=== PATIENT | female | born 1980 | race Caucasian/White ===

== ENCOUNTER → 2020-04-18 15:31 | Outpatient (CLI) | payer BC, SELFPAY ==
--- NOTE | ~2020-04-18 | XR_ITS ---
EXAMINATION: XR abdomen/kub 1V EXAM DATE: 04/18/2020 15:52 INDICATION: Left ureteral stone. TECHNIQUE: Frontal projection of the upper abdomen, frontal projection lower abdomen/pelvis for inter pretation. There is no prior study for comparison. FINDINGS: There is a round 3-4 mm density projecting just above the left L3 transverse process on one of the 2 projections, could be a proximal ureteral stone. Expected amount of colonic stool and gas. No small bowel obstruction. There is no organomegaly. Right-sided abdominal surgical clips. Lung base s unremarkable. There are mild bony degenerative changes. IMPRESSION: Left abdominal calcification, possible proximal ureteral stone. Reviewed, dictated and finalized at location B. SEAT SANDER
== END ==
PROVIDERS: Visit Provider Urology
DX: N20.1 Calculus of ureter (principal)
CPT/HCPCS: 74018

== ENCOUNTER 2020-04-20 00:10 | Outpatient (CLI) | payer BC, SELFPAY ==
[2020-04-20 17:16] LABS: SARS-CoV-2 RNA PCR Negative
== END 2020-04-20 00:11 | disposition home or self-care (01) ==
LOC: ANHCOVIDDT 00:11
PROVIDERS: Visit Provider Urology
DX: Z01.812 Encounter for preprocedural laboratory examination (principal); Z20.822 Contact with and (suspected) exposure to COVID-19
CPT/HCPCS: C9803; U0003; U0005

== ENCOUNTER 2020-04-20 07:36 | Outpatient (CLI) | payer BC, SELFPAY ==
--- NOTE | 2020-04-20 07:40 | ECG_ITS ---
Measurements Intervals [facility] Rate: 72 P: 56 GA: 173 QRS: 50 QRSD: 83 T: 22 QT: 368 QTc: 404 Interpretive Statements SINUS RHYTHM DELAYED PRECORDIAL R/S TRANSITION BASELINE ARTIFACT- I, III, AVL, AVF BORDERLINE ECG Electronically Signed On 04-20-2020 8:21:13 ELECTRONIC SCALE TESTER by Parker Cronin D.O.
[2020-04-20 08:30] LABS: Beta HCG Quantitative < 2.39 mIU/ML
[2020-04-20 08:35] LABS: INR 0.9; Prothrombin Time 12.6 Seconds (11.1-14.7)
[2020-04-20 08:37] LABS: Partial Thromboplastin Time 28.4 SECONDS (22.3-36.8)
== END 2020-04-20 07:37 | disposition home or self-care (01) ==
PROVIDERS: Visit Provider Urology
DX: Z01.818 Encounter for other preprocedural examination (principal); I10 Essential (primary) hypertension; N20.1 Calculus of ureter
CPT/HCPCS: 36415; 84702; 85610; 85730; 93005

== ENCOUNTER 2020-04-22 02:06 | Day surgery (SDC) | payer BC, SELFPAY ==
[2020-04-19 13:12] VITALS: BMI 29.6
[2020-04-22] VITALS (7 sets, daily range): BP systolic 149–177; BP diastolic 84–94; PULSE 60–93; RESP 14–16; TEMP 36.6–36.9; O2SAT 74–100
--- NOTE | ~2020-04-22 | XR_ITS ---
XR abdomen/kub 1V DATE: 04/22/2020 06:35 INDICATION: Lithotripsy TECHNIQUE: AP projection, 2 views COMPARISON: April 18, 2020 K[facility] FINDINGS: Approximately 3 mm calcified calculus overlies the left ureter at the L3-4 level. This is s ituated at the mid to upper L3 level on April 18, 2020. Surgical clips overlie the right quadrant. No evidence of bowel obstruction. The psoas shadows are intact. No visceromegaly is evident. Included skeletal structures are unremarkable. IMPRESSION: 3 mm calcified calculus overlying left ureter at L3-4 level Reviewed, dictated and finalized at [facility]. Reviewed, dictated and finalized at location A. RWATER ROBOTICIST
--- NOTE | 2020-04-22 07:07 | WPDANESEPPF ---
Anes - Initial Pre Proc Eval Procedure: Operation Date: 04/22/20 09:00 Proposed Procedures p Left Ureteral Extracorporeal Shock Wave Lithotripsy, - Itz Wheatley MD s Possible Cystoscopy, Possible Left Ureteroscopy, Left Retrograde Pyelogram, With Stone Extraction, Left Stent Placement - Itz Wheatley MD Date/Time: 04/22/20 07:07 Surgeon: Itz Wheatley MD Pre Op Diagnosis: Left Ureteral Stone Patient Data Age: 40 Gender: F Height: 5 ft 3 in Weight: 75.9 kg Allergies Allergy/AdvReac Type Severity Reaction Status Date / Time ciprofloxacin [From Cipro] Allergy Severe Hives Verified 04/19/20 13:34 Home Medications Medication Instructions Recorded Confirmed Type amlodipine 5 mg PO DAILY 04/19/20 04/19/20 History levothyroxine 25 mcg PO DAILY 04/19/20 04/19/20 History multivitamin [Daily Multivitamin] 1 tablet PO DAILY 04/19/20 04/19/20 History Patient hx anesthesia problems: none Family hx anesthesia problems: none PMFSH Past Medical History Medical History Hypertension Hypothyroid Social History Social History Years smoked: 20 Smoking status: Current some day smoker Tobacco type: cigarettes Living arrangements: with family Spiritual care concerns: No Anes - Eval Final PreProcedure Day of Procedure 04/22/20 07:07 Patient weight: overweight Heart: regular rate and rhythm Lungs: decreased breath sounds Airway: Mallampati scale class II Neurological: alert and oriented Last oral intake: >/= 8 hours ASA classification: II Emergent: no Anesthetic plan: proceed Anesthesia type and monitoring: general LMA and standard monitoring Informed Consent: The patient's anesthetic plan and its attendant risks and benefits were discussed with the patient/family/POA. Questions were solicited and answers provided to the satisfaction of the patient/family/POA.
--- NOTE | 2020-04-22 07:43 | WPDHPUPDATE1 ---
History and Physical Update Update Date/Time: 04/22/20 07:43 History and Physical has been reviewed, including an updated exam of the patient. There are NO changes in the patient's condition. Risks, benefits, and alternatives have been discussed and questions answered. Patient agrees to proceed with procedure.
[2020-04-22] MEDS: LACTATED RINGERS 1,000 ML 30 ML IV CONT (07:44)
--- NOTE | 2020-04-22 07:51 | WPDHPUPDATE1 ---
History and Physical Update Update Date/Time: 04/22/20 07:51 History and Physical has been reviewed, including an updated exam of the patient. There are NO changes in the patient's condition. Risks, benefits, and alternatives have been discussed and questions answered. Patient agrees to proceed with procedure. proceed with eswl left ureteral calculus, possible ureteroscopy with stone extraction , laser and stent.
[2020-04-22] MEDS: ceFAZolin 2 GM/D5W 50 ML 2 GM/50 ML BAG IVPB (07:58)
--- NOTE | 2020-04-22 08:35 | PM.PROC ---
Procedure Note - Detailed Date of procedure: 04/22/20 Pre-op diagnosis: Left Ureteral Stone Post-op diagnosis: same Procedure performed: ESWL of left ureteral calculus Description of procedure: Patient is taken the operative suite and correctly identified. Once anesthesia was obtained the stone was localized in both planes. Three thousand shocks were given to the stone. Patient tolerated procedure well without complications taken recovery room stable condition. She will follow up in about 10 days with K[facility]. Anesthesia: GLMA Surgeon: Itz Wheatley MD Drains: No Packing: No Pathology: none sent Complications: No immediate complications Condition: stable Disposition: PACU
== END 2020-04-22 10:19 | disposition home or self-care (01) ==
PROVIDERS: Visit Provider Urology
PROC: (CPT 50590; principal; 2020-04-22 09:00)
DX: N20.1 Calculus of ureter (principal); I10 Essential (primary) hypertension; E03.9 Hypothyroidism, unspecified; F17.210 Nicotine dependence, cigarettes, uncomplicated
CPT/HCPCS: 50590; 36415; 74018; 84702; 85610; 85730; 93005; A9270; C9803; J0690; J1100; J2250; J2405; J2704; J3010; J7120; U0003; U0005

== ENCOUNTER 2020-05-05 12:36 | Outpatient (CLI) | payer BC, SELFPAY ==
--- NOTE | ~2020-05-05 | XR_ITS ---
XR abdomen/kub 1V DATE: 05/05/2020 12:55 INDICATION: Left ureteral stone TECHNIQUE: AP projection, 2 views COMPARISON: 04/22/2020 KUB FINDINGS: The several millimeter calcification overlying the left ureter at the L3-4 level on 2020 is no longer evident and has likely passed. No other urinary tract calcification is noted. Postoperative changes of the right abdomen. No bowel obstruction. The psoas shadows are intact. No visceromegaly is evident. Included skeletal structures are unremarkable. IMPRESSION: Apparent interval resolution of left ureteral calcified calculus since April 22, 2020 Reviewed, dictated and finalized at [facility]. Reviewed, dictated and finalized at location B. IAMENTARY ARCHIVIST IMPRESSION: Apparent interval resolution of left ureteral calcified calculus si nce April 22, 2020
== END 2020-05-05 12:37 | disposition home or self-care (01) ==
LOC: ANHIMG 12:42
PROVIDERS: Visit Provider Urology
DX: N20.1 Calculus of ureter (principal)
CPT/HCPCS: 74018